=== PATIENT | female | born 1985 | race American Indian/Alaskan Native ===

== ENCOUNTER 2021-10-12 21:46 | Emergency (ER) | payer MEDICAID ==
[2021-10-12] MEDS ORDERED: TETANUS,DIPH,PERTUSS(ACELL) VACCINE 0.5 ML SYRINGE IM ONE (22:29)
--- NOTE | 2021-10-12 22:34 | Emergency Department Report ---
HPI - General Chief Complaint: Medical Clearance Time Seen by Provider: 10/12/21 22:25 - HPI HPI: Room 21 Patient is a 36-year-old female present with a chief complaint of self-inflicted head injury. Patient was being arrested by police when she began hitting her head on the door of the police car. Patient was taken out and please states she then began striking her head against a pillar on the side of the building and then on the concrete. There is no reported LOC per police. Patient was brought to the emergency department for medical clearance. Patient was given 5 mg of Versed and 50 mg of Benadryl by EMS prior to arrival ED Past Medical Hx - Surgical History Past Surgical History?: No - Family History Family history: no significant - Social History Smoking Status: Unknown if ever smoked ED Review of Systems ROS: Stated complaint: SUICIDAL Other details as noted in HPI Comment: Unobtainable due to pts medical conditions Physical Exam - Physical Exam Vital Signs: Vital Signs 10/12/21 22:00 Temperature 98.7 F Pulse Rate 93 H Respiratory 16 Rate Blood Pressure 134/80 [Right] O2 Sat by Pulse 100 Oximetry Physical Exam: GENERAL: The patient is well-developed well-nourished female sleeping on stretcher with dried blood on her face. [] HEENT: Normocephalic. Curvilinear skin tears to forehead x3. Extraocular motions are intact. Patient has moist mucous membranes. NECK: Supple. No axial step-off CHEST/LUNGS: Clear to auscultation. There is no respiratory distress noted. HEART/CARDIOVASCULAR: Regular. There is no tachycardia. There is no gallop rub or murmur. ABDOMEN: Abdomen is soft, nontender. Patient has normal bowel sounds. There is no abdominal distention. SKIN: There is no rash. There is no edema. There is no diaphoresis. NEURO: The patient is asleep but awakens to verbal and tactile stimuli. The patient is not cooperative with neurologic exam. MUSCULOSKELETAL: There is no evidence of acute injury. ED Course Vital Signs 10/12/21 22:00 Temperature 98.7 F Pulse Rate 93 H Respiratory 16 Rate Blood Pressure 134/80 [Right] O2 Sat by Pulse 100 Oximetry ED Medical Decision Making - Lab Data Result diagrams: 10/12/21 23:12 10/12/21 23:12 Laboratory Tests 08/10/2610/12/21 10/12/21 23:12 23:12 23:12 WBC 6.1 RBC 4.54 Hgb 13.1 Hct 39.3 MCV 87 MCH 29 MCHC 33 RDW 16.5 H Plt Count 369 Lymph % (Auto) 23.9 Schley % (Auto) 6.8 Eos % (Auto) 0.8 Baso % (Auto) 0.5 Lymph # (Auto) 1.5 Schley # (Auto) 0.4 Eos # (Auto) 0.1 Baso # (Auto) 0.0 Seg Neutrophils % 68.0 Seg Neutrophils # 4.1 Sodium 139 Potassium 3.2 L Chloride 102.7 Carbon Dioxide 26 Anion Gap 14 BUN 5 L Creatinine 0.6 Estimated GFR > 60 BUN/Creatinine Ratio 8 Glucose 85 Calcium 9.3 HCG, Qual Negative - Radiology Data Radiology results: report reviewed (CT head, CT cervical spine), image reviewed (CT head, CT cervical spine) [facility] [address] [place] [address] Cat Scan Report Signed Patient: OMAR MAURICIO MR#: [id number] : 1985 Acct:[id number] Age/Sex: 36 / F ADM Date: 10/12/21 Loc: ED Attending Dr: Ordering Physician: DEVANTE JAVED MD Date of Service: 10/12/21 Procedure(s): CT cervical spine wo con Accession Number(s): [id number] cc: DEVANTE JAVED MD CT cervical spine wo con, CT head/brain wo con INDICATION: Struck head repeatedly on concrete. TECHNIQUE: CT head and cervical spine without contrast. All CT scans at this location are performed using CT dose reduction for ALARA by means of automated exposure control. COMPARISON: None. FINDINGS: HEAD: BRAIN PARENCHYMA: No acute intracranial hemorrhage. No evidence of recent infarct. No mass effect or midline shift. VENTRICULAR SYSTEM/EXTRA-AXIAL SPACES: Ventricles are normal for age. No extra- axial fluid collection. ORBITS: Normal as visualized. SKELETAL SYSTEM/SOFT TISSUES: Normal bones and soft tissues. PARANASAL SINUSES/MASTOID AIR CELLS: No significant abnormality. CERVICAL: Alignment: Normal. No acute subluxation. Geographic Bone Lesion: None present. Fracture: No acute fracture. Degenerative Changes: Mild multilevel degenerative changes are present. Epidural Hematoma: Not present. Prevertebral / Paraspinal Soft Tissues: Unremarkable. IMPRESSION: 1. No acute intracranial abnormality. 2. No acute abnormality of the cervical spine. Signer Name: Jeanie Ruiz MD Signed: 10/12/2021 11:27 PM Workstation Name: [id number] Transcribed By: CHRIS Dictated By: JEANIE RUIZ MD Electronically Authenticated By: JEANIE RUIZ MD Signed Date/Time: 10/12/21 [address] [facility] [address] [place] [address] Cat Scan Report Signed Patient: OMAR MAURICIO MR#: [id number] : 1985 Acct:[id number] Age/Sex: 36 / F ADM Date: 10/12/21 Loc: ED Attending Dr: Ordering Physician: DEVANTE JAVED MD Date of Service: 10/12/21 Procedure(s): CT head/brain wo con Accession Number(s): [id number] cc: DEVANTE JAVED MD CT cervical spine wo con, CT head/brain wo con INDICATION: Struck head repeatedly on concrete. TECHNIQUE: CT head and cervical spine without contrast. All CT scans at this location are performed using CT dose reduction for ALARA by means of automated exposure control. COMPARISON: None. FINDINGS: HEAD: BRAIN PARENCHYMA: No acute intracranial hemorrhage. No evidence of recent infarct. No mass effect or midline shift. VENTRICULAR SYSTEM/EXTRA-AXIAL SPACES: Ventricles are normal for age. No extra- axial fluid collection. ORBITS: Normal as visualized. SKELETAL SYSTEM/SOFT TISSUES: Normal bones and soft tissues. PARANASAL SINUSES/MASTOID AIR CELLS: No significant abnormality. CERVICAL: Alignment: Normal. No acute subluxation. Geographic Bone Lesion: None present. Fracture: No acute fracture. Degenerative Changes: Mild multilevel degenerative changes are present. Epidural Hematoma: Not present. Prevertebral / Paraspinal Soft Tissues: Unremarkable. IMPRESSION: 1. No acute intracranial abnormality. 2. No acute abnormality of the cervical spine. Signer Name: Jeanie Ruiz MD Signed: 10/12/2021 11:27 PM Workstation Name: [id number] Transcribed By: CHRIS Dictated By: JEANIE RUIZ MD Electronically Authenticated By: JEANIE RUIZ MD Signed Date/Time: 10/12/212326 DD/ 24 TD/TT: - Differential Diagnosis Closed head injury, ICH, facial laceration Critical care attestation.: If time is entered above; I have spent that time in minutes in the direct care of this critically ill patient, excluding procedure time. ED Disposition Clinical Impression: Closed head injury, Forehead abrasion Disposition: 01 HOME / SELF CARE / HOMELESS Is pt being admited?: No Does the pt Need Aspirin: No Condition: Stable Instructions: Head Injury, Adult, [id number] Additional Instructions: Return to the emergency department should you develop worsening symptoms, in ability to tolerate food or liquids, high fever or any other concerns Referrals: PRIMARY CARE, [Referring] - 3-5 Days Time of Disposition: 23:47
[2021-10-12] MEDS ORDERED: SODIUM CHLORIDE IRRI 500 ML 500 ML IR ONE (22:35)
[2021-10-12 23:25] LABS: Basophils % (Auto) 0.5 % (0.0-1.8); Eosinophils # (Auto) 0.1 K/mm3 (0.0-0.4); Eosinophils % (Auto) 0.8 % (0.0-4.3); Hematocrit 39.3 % (30.3-42.9); Hemoglobin 13.1 gm/dl (10.1-14.3); Lymphocytes # (Auto) 1.5 K/mm3 (1.2-5.4); Lymphocytes % (Auto) 23.9 % (13.4-35.0); Mean Corpuscular HGB Conc 33 % (30-34); Mean Corpuscular Volume 87 fl (79-97); Monocytes # (Auto) 0.4 K/mm3 (0.0-0.8); Monocytes % (Auto) 6.8 % (0.0-7.3); Platelet Count 369 K/mm3 (140-440); Red Blood Count 4.54 M/mm3 (3.65-5.03); Red Cell Distribution Width 16.5 % (13.2-15.2)
--- NOTE | 2021-10-12 23:32 | Cat Scan Report ---
CT cervical spine wo con, CT head/brain wo con INDICATION: Struck head repeatedly on concrete. TECHNIQUE: CT head and cervical spine without contrast. All CT scans at this location are performed u sing CT dose reduction for ALARA by means of automated exposure control. COMPARISON: None. FINDINGS: HEAD: BRAIN PARENCHYMA: No acute intracranial hemorrhage. No evidence of recent infarct. No mass effect or midline shift. VENTRICULAR SYSTEM/EXTRA-AXIAL SPACES: Ventricles are normal for age. No extra-axial fluid collection . ORBITS: Normal as visualized. SKELETAL SYSTEM/SOFT TISSUES: Normal bones and soft tissues. PARANASAL SINUSES/MASTOID AIR CELLS: No significant abnormality. CERVICAL: Alignment: Normal. No acute subluxation. Geographic Bone Lesion: None present. Fracture: No acute fracture. Degenerative Changes: Mild multilevel degenerative changes are present. Epidural Hematoma: Not present. Prevertebral / Paraspinal Soft Tissues: Unremarkable. IMPRESSION: 1. No acute intracranial abnormality. 2. No acute abnormality of the cervical spine. Signer Name: Ignacio Mcgee MD Signed: 10/12/2021 11:27 PM Workstation Name: [id number]
[2021-10-12 23:40] LABS: Blood Urea Nitrogen 5 mg/dL (7-17); Calcium 9.3 mg/dL (8.4-10.2); Hemolysis Index 14
[2021-10-12 23:41] LABS: BUN/Creatinine Ratio 8
[2021-10-12] MEDS ORDERED: POTASSIUM CHLORIDE ER 20 MEQ TAB PO ONE (23:46)
[2021-10-12] MEDS ORDERED: BACITRACIN ZINC OINT 28.4 GM TP ONE (23:46)
[2021-10-13] VITALS: BP 124/72
== END 2021-10-13 00:20 | disposition home or self-care (01) ==
LOC: ED 21:46 → EEVIPCON 21:46 → ED 10-13 00:20
DX: S00.81XA Abrasion of other part of head, initial encounter (principal); S09.90XA Unspecified injury of head, initial encounter; W22.8XXA Striking against or struck by other objects, initial encounter; Y93.89 Activity, other specified; Y92.89 Other specified places as the place of occurrence of the external cause; Y99.8 Other external cause status
CPT/HCPCS: 36415; 70450; 72125; 80048; 84703; 85025; 90471; 90715; 99284